=== PATIENT | male | born 1940 | race African-American/Black ===

== ENCOUNTER 2017-11-27 11:21 | Emergency (ER) | payer MEDICARE, MEDICAID ==
[~2017-11-27] VITALS: Ht 167.6 cm; Wt 87.0 kg
[~2017-11-27 11:21] MED LIST: ASPI-1159 PO; ATEN50TA PO; CARV12.545 PO; CLOP75TA33 PO; DILT180C3 PO; ESCI10TA54 PO; FELO5TAB PO; FOLI-43 PO; FURO40TA5 PO; GABA-533 PO; MELO-106 PO; NAPR375T5 MT; OMEP40CA34 PO; POTA10TA15 PO; RIVA20TA PO; TAMS-11 PO; VALS160T2 PO
[2017-11-27 12:11] LABS: BASOPHILS % 1.6 % (0.0-2.0); EOSINOPHILS % 2.1 % (0.0-5.0); HEMATOCRIT. 27.2 % (42.0-52.0); HEMOGLOBIN. 8.1 g/dL (14.0-18.0); LYMPHOCYTES % 29.1 % (20.0-50.0); MEAN CORPUSCULAR HEMOGLOBIN 22.1 pg (28.0-32.0); MEAN CORPUSCULAR VOLUME 74.5 fL (80.0-94.0); MEAN PLATELET VOLUME 7.7 fl (7.4-10.4); MONOCYTES % 10.5 % (2.0-8.0); NEUTROPHILS % 56.7 % (40.0-76.0); PLATELET 271 x1000/uL (130-400); RED BLOOD CELL COUNT 3.65 mill/uL (4.7-6.1); RED CELL DISTRIBUTION WIDTH 19.4 % (11.6-14.6)
[2017-11-27 12:17] LABS: INR 1.2; PROTHROMBIN TIME 12.9 sec (9.4-11.6)
[2017-11-27 12:22] LABS: CHLORIDE 105 mEq/L (98-107)
[2017-11-27 12:29] LABS: TROPONIN I < 0.02 ng/mL (0.00-0.04)
[2017-11-27] MEDS ORDERED: FUROSEMIDE 20MG TABLET PO ONE (12:45)
[2017-11-27] MEDS ORDERED: FUROSEMIDE 40MG TABLET PO ONE (13:00)
[2017-11-27 15:16] VITALS: BP 170/114
== END 2017-11-27 16:11 | disposition short-term general hospital (02) ==
LOC: EDBEDREQ 11:52 → ER 12:27 → EDBEDREQ 12:49 → EDBEDREQTM 12:49 → ER 16:11 → CANBEDREQ 16:31
DX: I11.0 Hypertensive heart disease with heart failure (principal); I50.32 Chronic diastolic (congestive) heart failure; I49.5 Sick sinus syndrome; K21.9 Gastro-esophageal reflux disease without esophagitis; I48.2 Chronic atrial fibrillation; H40.9 Unspecified glaucoma; F17.210 Nicotine dependence, cigarettes, uncomplicated; Z79.01 Long term (current) use of anticoagulants; Z79.82 Long term (current) use of aspirin; Z86.73 Personal history of transient ischemic attack (TIA), and cerebral infarction without residual deficits
CPT/HCPCS: 36415; 71045; 80053; 83880; 84484; 85025; 85610; 93005; 99291